=== PATIENT | male | born 1960 | race Caucasian/White ===

== ENCOUNTER → 2017-01-02 21:15 | Outpatient (CLI) | payer MEDICARE ==
[2015-06-06 05:58] VITALS: BMI 26.0
[~2017-01-02 21:15] MED LIST: BAYER CHEWABLE81 MG PO; HYDROCODONE-APA1 TAB PO; NEURONTIN600 MG PO; PAXIL20 MG PO; PLAVIX75 MG PO; PRAVACHOL20 MG PO; TOPROL XL50 MG PO; ULTRAM50 MG PO; ZESTRIL40 MG PO
[2017-01-02 22:10] LABS: AMYLASE - SERUM 35 U/L (25-115); LIPASE 110 U/L (73-393)
== END | disposition home or self-care (01) ==
LOC: D.LABREF 21:15
PROVIDERS: Family Medicine
DX: R10.9 Unspecified abdominal pain (principal)

== ENCOUNTER → 2017-06-29 19:16 | Outpatient (CLI) | payer MEDICARE ==
[2015-06-06 05:58] VITALS: BMI 26.0
== END | disposition home or self-care (01) ==
LOC: D.LABREF 19:16
DX: Z13.9 Encounter for screening, unspecified (principal)